=== PATIENT | male | born 1965 ===

== ENCOUNTER 2024-09-18 06:20 | Day surgery (SDC) | payer BC, SELFPAY | END 2024-09-18 13:19 | disposition home or self-care (01) | LOC: GI 06:20 | PROVIDERS: ATTENDING PHYSICIAN Specialist | DX: Z12.11 Encounter for screening for malignant neoplasm of colon (principal); K63.89 Other specified diseases of intestine; K63.5 Polyp of colon; Z86.0101 Personal history of adenomatous and serrated colon polyps | CPT/HCPCS: 45380; 88305 ==